=== PATIENT | female | born 1955 | race American Indian/Alaskan Native ===

== ENCOUNTER 2018-09-21 10:32 | Emergency (ER) | payer BC ==
[2018-09-21] MEDS ORDERED: Ketorolac 30 MG/ML SDV IVPUSH ONE (10:49)
[2018-09-21] MEDS ORDERED: Sodium Chloride 0.9% 1,000 ML IV ONE (10:49)
[2018-09-21] MEDS ORDERED: Ondansetron 4 MG/2 ML SDV IV ONE ×2 (10:49→11:50)
[2018-09-21] MEDS ORDERED: Sodium Chloride 0.9% 10 ML Syringe FLUSH PRN (10:49)
[2018-09-21 11:22] LABS: ANION GAP 12.7; CHLORIDE,CL 106 mmol/L (101-111); SODIUM,NA 138 mmol/L (135-145)
[2018-09-21] MEDS ORDERED: cefTRIAXone 1 GM in Sodium Chloride 0.9% 50 ML IV ONE (11:50)
[2018-09-21] MEDS ORDERED: HYDROmorphone 1 MG/ML Syringe IVPUSH ONE (11:50)
[2018-09-21] MEDS ORDERED: Tamsulosin 0.4 MG Cap.ER PO ONE (12:03)
--- NOTE | 2018-09-21 12:47 | EDM.PDOC ---
"Scribed by Ene Romero 09/21/18 1230 for Babak Jaimes MD ED HPI GENERAL MEDICAL PROBLEM - General Chief Complaint: Abdominal Pain Stated Complaint: SHARP PAIN [id number] Time Seen by Provider: 09/21/18 10:54 Source of Information: Reports: Patient, RN, RN Notes Reviewed History Limitations: Reports: No Limitations - History of Present Illness INITIAL COMMENTS - FREE TEXT/NARRATIVE: Patient presents to ER by POV with complaint of sudden onset of right flank pain last evening. During the night the pain began to radiate toward the left groin and became severe. It is waxing and waning in intensity. It has caused nausea and vomiting. She has noticed a couple episodes of pink tinge urine but no earnest blood. Denies fevers and chills. The pain is similar to a kidney stone she had many years ago. Onset Date: 09/20/18 Duration: Waxing/Waning Location: Reports: Other (right flank) Quality: Reports: Ache Severity: Severe Improves with: Reports: None Worsens with: Reports: None Associated Symptoms: Reports: No Other Symptoms Right Lower Pelvic Pain Score (Numeric/FACES): 9 - Related Data Allergies Allergy/AdvReac Type Severity Reaction Status Date / Time clindamycin Allergy Intermediate hives and Verified 09/21/18 11:11 itching Home Meds: Home Meds Aspirin 81 mg PO DAILY 09/21/18 [History] Cholecalciferol (Vitamin D3) [Vitamin D] 1 cap PO DAILY 09/21/18 [History] Furosemide 20 mg PO DAILY 09/21/18 [History] Loratadine 10 mg PO BEDTIME 09/21/18 [History] Losartan [Cozaar] 50 mg PO DAILY 09/21/18 [History] Melatonin 3 mg PO BEDTIME 09/21/18 [History] Potassium Chloride 10 meq PO DAILY 09/21/18 [History] Rosuvastatin [Crestor] 5 mg PO DAILY 09/21/18 [History] ED ROS GENERAL - Review of Systems Review Of Systems: ROS reveals no pertinent complaints other than HPI. ED EXAM, RENAL/ - Physical Exam Exam: See Below Exam Limited By: No Limitations General Appearance: Alert, WD/WN, No Apparent Distress, Obese, Other ( uncomfortble but nontoxic appearing) Eye Exam: Bilateral Eye: Normal Inspection Throat/Mouth: Normal Inspection, Normal Voice, No Airway Compromise Head: Atraumatic, Normocephalic Neck: Normal Inspection Respiratory/Chest: No Respiratory Distress, Lungs Clear, Normal Breath Sounds, No Accessory Muscle Use, Chest Non-Tender Cardiovascular: Regular Rate, Rhythm GI/Abdominal: Normal Bowel Sounds, Soft, Non-Tender. No: Guarding, Rigid, Rebound Back Exam: Full Range of Motion, CVA Tenderness (R). No: CVA Tenderness (L), Vertebral Tenderness Extremities: Normal Inspection Neurological: Alert, Oriented, CN II-XII Intact, Normal Cognition, Normal Gait, No Motor/Sensory Deficits Psychiatric: Normal Affect, Normal Mood Skin Exam: Warm, Dry, Intact, Normal Color, No Rash Course - Vital Signs Last Recorded V/S: Last Vital Signs Temp 37.0 C 09/21/18 10:34 Pulse 100 09/21/18 10:34 Resp 22 H 09/21/18 10:34 BP 151/80 H 09/21/18 10:34 Pulse Ox 100 09/21/18 10:34 - Orders/Labs/Meds Orders: Active Orders 24 hr Category Date Time Status Peripheral IV Care [RC] . DIRECTED Care 09/21/18 10:49 Active Abdomen Pelvis wo Cont [CT] Urgent Exams 09/21/18 11:30 Taken Sodium Chloride 0.9% [Saline Flush] Med 09/21/18 10:49 Active 10 ml FLUSH ASDIRECTED PRN cefTRIAXone [Rocephin] 1 gm Med 09/21/18 11:50 Active Sodium Chloride 0.9% [Normal Saline] 50 ml IV ONETIME Peripheral IV Insertion Adult [OM.PC] Stat Oth 09/21/18 10:49 Ordered Medication Orders Ceftriaxone Sodium 1 gm/ (Sodium Chloride) 50 mls @ 50 mls/hr IV ONETIME ONE Stop: 09/21/18 12:49 Last Admin: 09/21/18 12:13 Dose: 50 mls/hr Sodium Chloride (Saline Flush) 10 ml FLUSH ASDIRECTED PRN PRN Reason: Keep Vein Open Last Admin: 09/21/18 11:08 Dose: 10 ml Labs: Laboratory Tests 09/21/18 09/21/18 09/21/18 Range/Units 10:56 10:56 11:00 WBC 7.6 (5.0-10.0) 10^3/uL RBC 4.81 (4.2-5.4) 10^6/uL Hgb 15.0 (12.0-16.0) g/dL Hct 44.9 (37.0-47.0) % MCV 93.3 (80-100) fL MCH 31.2 (27.0-34.0) pg MCHC 33.4 (33.0-35.0) g/dL Plt Count 206 (150-450) 10^3/uL Neut % (Auto) 64.4 (42.2-75.2) % Lymph % (Auto) 28.1 (20.5-50.1) % [place] % (Auto) 4.1 (2-8) % Eos % (Auto) 3.0 (1.0-3.0) % Baso % (Auto) 0.4 (0.0-1.0) % Sodium 138 (135-145) mmol/L Potassium 3.7 (3.6-5.0) mmol/L Chloride 106 (101-111) mmol/L Carbon Dioxide 23.0 (21.0-31.0) mmol/L Anion Gap 12.7 BUN 22 H (7-18) mg/dL Creatinine 0.8 (0.6-1.3) mg/dL Est Cr Clr Drug Dosing TNP Estimated GFR (MDRD) > 60 BUN/Creatinine Ratio 27.50 Glucose 136 H (74-105) mg/dL Calcium 9.1 (8.4-10.2) mg/dl Total Bilirubin 0.9 (0.2-1.0) mg/dL AST 26 (10-42) IU/L ALT 32 (10-60) IU/L Alkaline Phosphatase 74 (42-121) IU/L Total Protein 7.6 (6.7-8.2) g/dl Albumin 4.1 (3.2-5.5) g/dl Globulin 3.5 Albumin/Globulin Ratio 1.17 Amylase 24 L (28-100) U/L Lipase 28 (22-51) U/L Urine Color Dark yellow (YELLOW) Urine Appearance Cloudy (CLEAR) Urine pH 5.0 (5.0-9.0) Ur Specific Coleman >= 1.030 (1.005-1.030) Urine Protein 100 H (NEGATIVE) Urine Glucose (UA) Negative (NEGATIVE) Urine Ketones Negative (NEGATIVE) Urine Occult Blood Large H (NEGATIVE) Urine Nitrite Negative (NEGATIVE) Urine Bilirubin Negative (NEGATIVE) Urine Urobilinogen 0.2 (0.2-1.0) mg/dL Ur Leukocyte Esterase Negative (NEGATIVE) Urine RBC >100 H /HPF Urine WBC 0-5 (0-5/HPF) /HPF Ur Epithelial Cells Moderate H /HPF Urine Bacteria Many H (0-FEW/HPF) /HPF Urine Yeast Few H (0/HPF) /HPF Urinalysis Comment Meds: Medications Generic Name Dose Route Start Last Admin Trade Name Freq PRN Reason Stop Dose Admin Ceftriaxone Sodium 1 gm/ 50 mls @ 50 mls/hr 09/21/18 11:50 09/21/18 12:13 Sodium Chloride IV 09/21/18 12:49 50 mls/hr ONETIME ONE Administration Sodium Chloride 10 ml 09/21/18 10:49 09/21/18 11:08 Saline Flush FLUSH 10 ml ASDIRECTED PRN Administration Keep Vein Open Discontinued Medications Generic Name Dose Route Start Last Admin Trade Name Freq PRN Reason Stop Dose Admin Hydromorphone HCl 1 mg 09/21/18 11:50 09/21/18 12:09 Dilaudid IVPUSH 09/21/18 11:51 1 mg ONETIME ONE Administration Sodium Chloride 1,000 mls @ 999 mls/hr 09/21/18 10:49 09/21/18 11:10 Normal Saline IV 09/21/18 11:49 999 mls/hr .BOLUS ONE Administration Ketorolac Tromethamine 30 mg 09/21/18 10:49 09/21/18 11:17 Toradol IVPUSH 09/21/18 10:50 30 mg ONETIME ONE Administration Ondansetron HCl 4 mg 09/21/18 10:49 09/21/18 11:15 Zofran IV 09/21/18 10:50 4 mg ONETIME ONE Administration Ondansetron HCl 4 mg 09/21/18 11:50 09/21/18 12:09 Zofran IV 09/21/18 11:51 4 mg ONETIME ONE Administration Tamsulosin HCl 0.4 mg 09/21/18 12:03 09/21/18 12:17 Flomax PO 09/21/18 12:04 0.4 mg ONETIME ONE Administration - Radiology Interpretation Free Text/Narrative:: [facility] [place] [facility] Final Radiology Report Call: [phone] assistance Online chat: [email or web address] Name: BAM LAMAR Age: 62Years F Date: 09/21/2018 SSN: -- : [id number] Study: CT ABDOMEN/PELVIS WO Requesting Physician: BABAK JAIMES Images: [id number] Addl Studies: Provided Clinical History: right flank pain, hematuria Contrast: Without Contrast Medium: Contrast Amount: Contrast Method: Page 1 of 2 EXAM: CT Abdomen and Pelvis Without Contrast EXAM DATE/TIME: 09/21/2018 11:48 AM CLINICAL HISTORY: 62 years old, female; Pain; Abdominal pain; Flank; Right; Prior surgery; Surgery date: 6+ months; Surgery type: Renal stone removal, hysterectomy-an ovary remained but unsure which side, gallbladder removed; Additional info: Right flank pain, hematuria TECHNIQUE: Axial computed tomography images of the abdomen and pelvis without contrast. All CT scans at this facility use at least one of these dose optimization techniques: automated exposure control; mA and/or kV adjustment per patient size (includes targeted exams where dose is matched to clinical indication); or iterative reconstruction. Coronal and sagittal reformatted images were created and reviewed. COMPARISON: No relevant prior studies available. FINDINGS: Limitations: Evaluation is somewhat limited by lack of IV contrast. Lower thorax: The visualized lung bases demonstrate minor dependent atelectasis. There is a small hiatal hernia. ABDOMEN: Liver: The liver is fatty in density. It appears otherwise grossly unremarkable. Gallbladder and bile ducts: Cholecystectomy clips are present. Pancreas: Grossly unremarkable. Spleen: A small splenule is noted. The spleen itself appears grossly unremarkable. BAM LAMAR | Final Radiology Report CONFIDENTIALITY STATEMENT This report is intended only for use by the referring physician, and only in accordance with law. If you received this in error, call [phone]. Page 2 of 2 Adrenals: Grossly unremarkable. Kidneys and ureters: Moderate right-sided hydroureteronephrosis secondary to a 6 x 3 x 6 mm stone at the right ureterovesical junction. Both kidneys contain nonobstructing stones as well, measuring up to 6 mm on either side. There is no left-sided hydronephrosis or ureteral stone. The left kidney demonstrates some cortical scarring. The kidneys appear otherwise grossly unremarkable. Stomach and bowel: The unopacified small bowel is not significantly distended to suggest obstruction. Mild scattered colonic diverticulosis without evidence for diverticulitis. Appendix: The appendix appears normal. PELVIS: Bladder: Unremarkable as visualized. Reproductive: There has been a hysterectomy. No gross adnexal abnormality is apparent, but ultrasound would be more appropriate in this regard. ABDOMEN and PELVIS: Intraperitoneal space: Normal. No free air. No significant fluid collection. Bones/joints: Degenerative changes involve the spine, sacroiliac joints and hips. Soft tissues: Unremarkable. Vasculature: The abdominal aorta is nonaneurysmal. Atherosclerotic vascular calcifications are noted. Lymph nodes: No gross pathologic lymphadenopathy. IMPRESSION: 1. Moderate right-sided hydroureteronephrosis secondary to a 6 x 3 x 6 mm stone at the right ureterovesical junction. 2. Small additional nonobstructing bilateral nephrolithiasis. 3. Fatty liver. 4. Small hiatal hernia. 5. Mild scattered colonic diverticulosis without evidence for diverticulitis. Thank you for allowing us to participate in the care of your patient. Dictated and Authenticated by: Braxton Christie MD 09/21/2018 12:44 PM Central Time ([place] & [place]) Departure - Departure Time of Disposition: 12:29 Disposition: Home, Self-Care 01 Condition: Fair Clinical Impression: Ureteral calculus, right - Discharge Information *PRESCRIPTION DRUG MONITORING PROGRAM REVIEWED*: No *COPY OF PRESCRIPTION DRUG MONITORING REPORT IN PATIENT CARISA: No Instructions: Kidney Stones Forms: ED Department Discharge Additional Instructions: Rx: Percocet 10mg/325mg *Do not drive while under the influence of this medication. Rx: Zofran 4mg Rx: Flomax 0.4mg Rx: Cipro 500mg Follow up in clinic tomorrow for recheck and referral to urology if needed. - My Orders Last 24 Hours: My Active Orders 09/21/18 10:49 Peripheral IV Care [RC] . DIRECTED Sodium Chloride 0.9% [Saline Flush] 10 ml FLUSH ASDIRECTED PRN Peripheral IV Insertion Adult [OM.PC] Stat 09/21/18 11:30 Abdomen Pelvis wo Cont [CT] Urgent 09/21/18 11:50 cefTRIAXone [Rocephin] 1 gm Sodium Chloride 0.9% [Normal Saline] 50 ml IV ONETIME - Assessment/Plan Last 24 Hours: My Active Orders 09/21/18 10:49 Peripheral IV Care [RC] . DIRECTED Sodium Chloride 0.9% [Saline Flush] 10 ml FLUSH ASDIRECTED PRN Peripheral IV Insertion Adult [OM.PC] Stat 09/21/18 11:30 Abdomen Pelvis wo Cont [CT] Urgent 09/21/18 11:50 cefTRIAXone [Rocephin] 1 gm Sodium Chloride 0.9% [Normal Saline] 50 ml IV ONETIME I have read and agree with the documentation that has been completed regarding this visit. By signing this record, I attest that the documentation was completed in my physical presence and is an accurate record of the encounter."
== END 2018-09-21 13:35 | disposition home or self-care (01) ==
LOC: DL.ED 10:32
DX: N13.2 Hydronephrosis with renal and ureteral calculous obstruction (principal); Z88.1 Allergy status to other antibiotic agents; Z79.82 Long term (current) use of aspirin; Z79.899 Other long term (current) drug therapy
CPT/HCPCS: 36415; 74176; 80053; 81001; 82150; 83690; 85025; 96361; 96365; 96375; 99284; A9270-GY; J0696; J1170; J1885; J2405; J7030; J7050